=== PATIENT | female | born 1960 | race Caucasian/White ===

== ENCOUNTER → 2017-01-13 | Outpatient (REF) | payer BC | LOC: M SFHCPLAZ 16:59 | PROVIDERS: ATTEND Dermatology | DX: R23.8 Other skin changes (principal); D22.9 Melanocytic nevi, unspecified ==

== ENCOUNTER → 2017-04-06 | Outpatient (CLI) | payer BC ==
--- NOTE | 2017-04-06 11:59 | RADONC ---
RADIATION ONCOLOGY FOLLOWUP NOTE: DATE: 04/06/2017 CHART NUMBER: [id number]. DIAGNOSIS: Left breast cancer. STAGE: 0, [id number]. ECOG PERFORMANCE STATUS: Zero. FOLLOWUP NOTE: Ms. 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 The patient presents today reporting that she is doing quite well with no complaints at this time related to her radiation therapy or disease. She has no breast or bone pain. REVIEW OF SYSTEMS: The patient's review of systems is noncontributory. Denies nausea, vomiting, fevers, chills, night sweats, diplopia, headaches, anxiety or depression, anorexia, weight loss, visual disturbances, chest pain, urinary or bowel difficulties, bone pain, or neurological problems. PHYSICAL EXAMINATION: The patient is a well-developed, well-nourished, 56-year-old female, in no acute distress. HEENT exam is normocephalic, atraumatic. Extraocular movements are intact. There is no palpable cervical, supraclavicular, infraclavicular, axillary, or inguinal lymphadenopathy present. Lungs are clear to auscultation and percussion. Heart has a regular rate and rhythm. Abdomen is benign with no hepatosplenomegaly, masses, or tenderness. Breast examination reveals no masses or discharge bilaterally. Skeletal examination reveals no tenderness to pressure or percussion of the bony skeleton. Extremities reveal no clubbing, cyanosis, or edema. Neurologic exam is grossly intact, as is the remainder of the physical examination. ASSESSMENT: The patient is clinically KRIS at this time and will be seen by us again in October for further followup. She will also continue to be followed by her other physicians as well. cc: MD Josette Salazar MD Hardik Patel, MD
== END ==
LOC: M ONCR 09:27
PROVIDERS: ATTEND Radiology Radiation Oncology
DX: D05.12 Intraductal carcinoma in situ of left breast (principal)

== ENCOUNTER 2017-07-22 10:24 | Outpatient (CLI) | payer BC ==
[~2017-07-22] VITALS: Ht 171.4 cm; Wt 68.0 kg
[~2017-07-22 10:24] MED LIST: FISH5CAP PO; MULT1TAB10 PO; TAMO20TA4 PO
[2017-07-22] MEDS ORDERED: NS 1,000 ML IV ONE (11:00)
[2017-07-22] MEDS ORDERED: LIDOCAINE 2% INJ 100 MG/5 ML SDV (FOR ANES.) As Ordered ONE (11:41)
[2017-07-22] MEDS ORDERED: PROPOFOL 200 MG/20 ML VIAL As Ordered ONE (11:41)
--- NOTE | 2017-07-22 11:54 | ROOR ---
Patient Name: Carito Tran Procedure Date: 07/22/2017 11:38 AM Date of : 1960 Age: 57 Room: [facility] Gender: Female Note Status: Finalized Procedure: Upper GI endoscopy Indications: Globus sensation Providers: Luis LIRA MD Referring MD: Anamaria GARAY MD Requesting Provider: Medicines: Monitored Anesthesia Care Complications: No immediate complications. Procedure: Pre-Anesthesia Assessment: - The heart rate, respiratory rate, oxygen saturations, blood pressure, adequacy of pulmonary ventilation, and response to care were monitored throughout the procedure. The Endoscope was introduced through the mouth, and advanced to the second part of duodenum. The upper GI endoscopy was accomplished without difficulty. The patient tolerated the procedure well. Findings: The esophagus was normal. The stomach was normal. The examined duodenum was normal. Four biopsies were obtained in the entire esophagus with cold forceps for evaluation of eosinophilic esophagitis. Impression: - Normal esophagus. - Normal stomach. - Normal examined duodenum. - Four biopsies were obtained in the entire esophagus. Recommendation: - Telephone endoscopist for pathology results in 2 weeks. Luis Lira MD Luis LIRA MD 07/22/2017 11:53:59 AM This report has been signed electronically. Number of Addenda: 0 Note Initiated On: 07/22/2017 11:38 AM Estimated Blood Loss: Estimated blood loss: none.
--- NOTE | 2017-07-22 12:09 | ROOR ---
Patient Name: Carito Tran Procedure Date: 07/22/2017 11:39 AM Date of : 1960 Age: 57 Room: [facility] Gender: Female Note Status: Finalized Procedure: Colonoscopy Indications: Screening for colorectal malignant neoplasm Providers: Luis LIRA MD Referring MD: Anamaria GARAY MD Requesting Provider: Medicines: Monitored Anesthesia Care Complications: No immediate complications. Procedure: Pre-Anesthesia Assessment: - The heart rate, respiratory rate, oxygen saturations, blood pressure, adequacy of pulmonary ventilation, and response to care were monitored throughout the procedure. The Colonoscope was introduced through the anus and advanced to the terminal ileum, with identification of the appendiceal orifice and IC valve. The colonoscopy was performed without difficulty. The patient tolerated the procedure well. The quality of the bowel preparation was good. Findings: The perianal and digital rectal examinations were normal. Internal hemorrhoids were found during retroflexion. The hemorrhoids were moderate. The entire examined colon appeared normal on direct and retroflexion views. Impression: - Internal hemorrhoids. - The colon is normal on direct and retroflexion views. - No specimens collected. Recommendation: - Repeat colonoscopy in 10 years for screening purposes. Luis Lira MD Luis LIRA MD 07/22/2017 12:09:49 PM This report has been signed electronically. Number of Addenda: 0 Note Initiated On: 07/22/2017 11:39 AM Estimated Blood Loss: Estimated blood loss: none.
[2017-07-22 12:39] VITALS: BP 121/74
== END 2017-07-22 12:42 | disposition home or self-care (01) ==
LOC: M OPP 10:24
PROVIDERS: ATTEND Internal Medicine Gastroenterology
DX: Z12.11 Encounter for screening for malignant neoplasm of colon (principal); K64.8 Other hemorrhoids; F45.8 Other somatoform disorders; R13.10 Dysphagia, unspecified; E78.5 Hyperlipidemia, unspecified; K62.5 Hemorrhage of anus and rectum; Z85.3 Personal history of malignant neoplasm of breast; Z92.3 Personal history of irradiation; Z90.12 Acquired absence of left breast and nipple; Z79.899 Other long term (current) drug therapy; Z80.7 Family history of other malignant neoplasms of lymphoid, hematopoietic and related tissues; Z80.3 Family history of malignant neoplasm of breast; Z80.51 Family history of malignant neoplasm of kidney; Z80.42 Family history of malignant neoplasm of prostate
CPT/HCPCS: 43239; 88305; G0121

== ENCOUNTER → 2017-11-09 | Outpatient (CLI) | payer BC | LOC: M ONCR 08:57 | DX: D05.12 Intraductal carcinoma in situ of left breast (principal) | CPT/HCPCS: G0463 ==

== ENCOUNTER → 2018-05-31 | Outpatient (CLI) | payer BC | LOC: M ONCR 09:43 | DX: Z08 Encounter for follow-up examination after completed treatment for malignant neoplasm (principal); Z85.3 Personal history of malignant neoplasm of breast; Z92.3 Personal history of irradiation | CPT/HCPCS: G0463 ==

== ENCOUNTER → 2018-12-20 | Outpatient (CLI) | payer BC ==
[~2018-12-20] MED LIST changes: -TAMO20TA4 PO; +TAMO20TA8 PO
--- NOTE | 2018-12-20 14:36 | RADONC ---
RADIATION ONCOLOGY FOLLOWUP NOTE DATE: 12/20/2018 CHART NUMBER: [id number] DIAGNOSIS: Left breast cancer. STAGE: 0, [id number]. ECOG PERFORMANCE STATUS: 0 FOLLOWUP NOTE: Ms. 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 The patient presents today reporting that she is doing quite well with no complaints at this time related to her radiation therapy or disease. She has no breast or bone pain. REVIEW OF SYSTEMS: The patient's review of systems is noncontributory. Denies nausea, vomiting, fevers, chills, night sweats, diplopia, headaches, anxiety or depression, anorexia, weight loss, visual disturbances, chest pain, urinary or bowel difficulties, bone pain, or neurological problems. PHYSICAL EXAMINATION: The patient is a well-developed, well-nourished, 58-year-old white female, in no acute distress. HEENT exam is normocephalic, atraumatic. Extraocular movements are intact. There is no palpable cervical, supraclavicular, infraclavicular, axillary, or inguinal lymphadenopathy present. Lungs are clear to auscultation and percussion. Heart has a regular rate and rhythm. Abdomen is benign with no hepatosplenomegaly, masses, or tenderness. Breast examination reveals no masses or discharge bilaterally. Skeletal examination reveals no tenderness to pressure or percussion of the bony skeleton. Extremities reveal no clubbing, cyanosis, or edema. Neurologic exam is grossly intact, as is the remainder of the physical examination. ASSESSMENT: The patient is clinically KRIS at this time. She is being followed closely by her surgeon and medical oncologist as well as her other physicians. In light of this, I have discharged her from our followup except on a p.r.n. basis. cc: MD Josette Salazar MD Hardik Patel, MD
== END ==
LOC: M ONCR 13:09
PROVIDERS: ATTEND Radiology Radiation Oncology
DX: D05.12 Intraductal carcinoma in situ of left breast (principal)

== ENCOUNTER → 2021-02-01 | Outpatient (CLI) | payer BC ==
[~2021-02-01] MED LIST changes: +BENEPOW18 PO; +KP F1200 PO; +REFR0.5D8 OU; +VITMTA PO
== END ==
LOC: M LABSMTC 08:54
PROVIDERS: ATTEND Anesthesiology
DX: Z01.812 Encounter for preprocedural laboratory examination (principal); Z20.828 Contact with and (suspected) exposure to other viral communicable diseases

== ENCOUNTER 2021-02-06 09:31 | Day surgery (SDC) | payer BC ==
[~2021-02-06] VITALS: Ht 170.2 cm; Wt 64.4 kg
[~2021-02-06 09:31] MED LIST changes: +LIDOCAINE 2% 100MG/5ML SDV (FOR ANES.) As Ordered ONE; +NS 1,000 ML IV ONE; +propofoL 200 MG/20 ML VIAL As Ordered ONE
[2021-02-06] MEDS ORDERED: propofoL 200 MG/20 ML VIAL As Ordered ONE (10:38)
--- NOTE | 2021-02-06 10:54 | ROOR ---
Patient Name: Carito Tran Procedure Date: 02/06/2021 10:05 AM Date of : 1960 Age: 60 Room: [facility] Gender: Female Note Status: Finalized Procedure: Colonoscopy Indications: Therapeutic procedure, Hematochezia Providers: Luis LIRA MD Referring MD: Anamaria GARAY MD Requesting Provider: Medicines: Monitored Anesthesia Care Complications: No immediate complications. Procedure: Pre-Anesthesia Assessment: - The heart rate, respiratory rate, oxygen saturations, blood pressure, adequacy of pulmonary ventilation, and response to care were monitored throughout the procedure. The Colonoscope was introduced through the anus and advanced to the terminal ileum, with identification of the appendiceal orifice and IC valve. The colonoscopy was performed without difficulty. The patient tolerated the procedure well. The quality of the bowel preparation was good. Findings: Small external Hemorrhoids were found on perianal exam. Two sessile polyps were found in the proximal ascending colon and cecum. The polyps were 4 to 5 mm in size. These polyps were removed with a cold snare. Resection and retrieval were complete. The colon (entire examined portion) was redundant. Moderate Internal hemorrhoids were found during retroflexion. The hemorrhoids were medium-sized. Three bands were successfully placed. Impression: - Small hemorrhoids found on perianal exam. - Moderate Internal hemorrhoids. Banded. - Two 4 to 5 mm polyps in the proximal ascending colon and in the cecum, removed with a cold snare. Resected and retrieved. - Redundant colon. - The colon is otherwise normal. Recommendation: - Use fiber, for example Citrucel, Fibercon, Konsyl or Metamucil. - Await pathology results. - Repeat colonoscopy in 5 years for surveillance. Procedure Code(s): --- Professional --- 83038, Colonoscopy, flexible; with removal of tumor(s), polyp(s), or other lesion(s) by snare technique [id number], Colonoscopy, flexible; with band ligation(s) (eg, hemorrhoids) Diagnosis Code(s): --- Professional --- Q43.8, Other specified congenital malformations of intestine K92.1, Melena (includes Hematochezia) K63.5, Polyp of colon K64.8, Other hemorrhoids CPT copyright 2019 [employer]. All rights reserved. The codes documented in this report are preliminary and upon at home independent call center agent review may be revised to meet current compliance requirements. Luis Lira MD Luis LIRA MD 02/06/2021 10:53:50 AM Electronically signed by Luis LIRA MD Number of Addenda: 0 Note Initiated On: 02/06/2021 10:05 AM Estimated Blood Loss: Estimated blood loss: none.
[2021-02-06 11:05] VITALS: BP 128/72
== END 2021-02-06 11:14 | disposition home or self-care (01) ==
LOC: M OPP 09:31
PROVIDERS: ATTEND Internal Medicine Gastroenterology
DX: K92.1 Melena (principal); D12.0 Benign neoplasm of cecum; Q43.8 Other specified congenital malformations of intestine; K64.8 Other hemorrhoids; E78.5 Hyperlipidemia, unspecified; Z85.3 Personal history of malignant neoplasm of breast; Z92.3 Personal history of irradiation; Z79.899 Other long term (current) drug therapy; Z80.8 Family history of malignant neoplasm of other organs or systems; Z82.49 Family history of ischemic heart disease and other diseases of the circulatory system; Z80.3 Family history of malignant neoplasm of breast; Z80.51 Family history of malignant neoplasm of kidney; Z80.42 Family history of malignant neoplasm of prostate

== ENCOUNTER → 2021-05-05 | Outpatient (CLI) | payer BC ==
[~2021-05-05] MED LIST changes: -LIDOCAINE 2% 100MG/5ML SDV (FOR ANES.) As Ordered ONE; -NS 1,000 ML IV ONE; -propofoL 200 MG/20 ML VIAL As Ordered ONE
--- NOTE | 2021-05-05 11:29 | REP ---
INDICATION: AAA SCREENING. COMPARISON: None. TECHNIQUE: Retroperitoneal scanning, aortic sonography. FINDINGS: Scanning through the retroperitoneum demonstrates that the abdominal aorta is normal in caliber at the level of the diaphragmatic hiatus measuring 2.3 x 2.3 cm in AP by transverse dimension respectively. The measurements of the aorta at the level of the renal artery origins is 1.7 x 1.6 cm, AP by transverse dimension respectively. The distal aorta tapers to 1.7 x 1.5 cm AP by transverse dimension. The right and left common iliac arteries are normal measuring 1.2 and 1.2 cm in AP dimension respectively. No aneurysm is seen. No periaortic disease is observed. IMPRESSION: Negative abdominal aortic sonography. <Electronically signed by Clive Harding > 05/05/21 112
== END ==
LOC: M RAD 08:56
PROVIDERS: ATTEND Internal Medicine
DX: Z13.6 Encounter for screening for cardiovascular disorders (principal); Z82.49 Family history of ischemic heart disease and other diseases of the circulatory system

== ENCOUNTER → 2025-02-06 | Outpatient (REF) | payer MEDICARE | LOC: M LAB REF 12:20 | PROVIDERS: ATTEND Internal Medicine | DX: N39.0 Urinary tract infection, site not specified (principal) ==

== ENCOUNTER → 2025-02-11 | Outpatient (CLI) | payer MEDICARE | LOC: M WUC 10:04 | PROVIDERS: ATTEND Internal Medicine | DX: M54.50 Low back pain, unspecified (principal) ==

== ENCOUNTER → 2025-02-21 | Outpatient (CLI) | payer MEDICARE | LOC: M PLAIMG 06:58 | PROVIDERS: ATTEND Internal Medicine | DX: M54.50 Low back pain, unspecified (principal); M47.812 Spondylosis without myelopathy or radiculopathy, cervical region ==

== ENCOUNTER → 2025-02-27 | Outpatient (REF) | payer MEDICARE | LOC: M LAB REF 14:19 | PROVIDERS: ATTEND Internal Medicine | DX: M54.41 Lumbago with sciatica, right side (principal) ==